=== PATIENT | female | born 1995 | race Caucasian/White ===

== ENCOUNTER 2022-06-05 02:38 | Emergency (ER) | payer OTHER ==
[2022-06-05] MEDS ORDERED: Sodium Chloride 0.9% 1,000 ML ONE (03:13)
== END 2022-06-05 03:42 | disposition left against medical advice (07) ==
LOC: MADERS 02:38
DX: O42.913 Preterm premature rupture of membranes, unspecified as to length of time between rupture and onset of labor, third trimester (principal); Z3A.30 30 weeks gestation of pregnancy
CPT/HCPCS: 99283; J7050